=== PATIENT | male | born 1950 | race Caucasian/White ===

== ENCOUNTER 2018-02-05 00:18 | Observation (INO) | payer OTHER ==
[~2018-02-05] VITALS: Ht 180.3 cm; Wt 148.5 kg
[~2018-02-05 00:18] MED LIST: ACET325 PO; FAMO20 PO; FURO40 PO; LISI20 PO; POTCHL20ER PO; XARELTO15 MG PO; XARELTO20 MG PO
[2018-02-05 00:53] LABS: BASOPHILS ABSOLUTE AUTO 0.07 K/mm3 (0.00-0.23); BASOPHILS PERCENT AUTO 1 % (0-2); EOSINOPHILS PERCENT AUTO 4 % (0-6); Hematocrit 48.5 % (37.0-53.0); Hemoglobin 15.9 g/dL (13.5-17.5); IMMATURE GRAN PERCENT AUTO 1 % (0-1); LYMPHOCYTES PERCENT AUTO 20 % (21-46); MONOCYTES ABSOLUTE AUTO 0.96 K/mm3 (0.16-1.47); MONOCYTES PERCENT AUTO 9 % (4-13); Mean Corpuscular HGB 29.7 pg (26.0-34.0); Mean Corpuscular HGB Conc 32.8 g/dL (31.5-36.5); Mean Corpuscular Volume 91 fL (80-100); NEUTROPHILS PERCENT AUTO 66 % (41-73); RDW Coefficient Variation 13.3 % (11.7-14.2); RDW Standard Deviation 44.5 fL (35.1-46.3); Red Blood Cell Count 5.36 M/mm3 (4.30-5.90); White Blood Cell Count 10.93 K/mm3 (4.00-11.30)
[2018-02-05 00:55] LABS: Mean Platelet Volume 9.9 fL (9.1-12.4); Platelet Count 235 K/mm3 (150-400)
[2018-02-05 01:06] LABS: Alanine Aminotransfer (ALT/SGP 24 U/L (12-78); Albumin, Blood 3.3 g/dL (3.4-5.0); Albumin/Globulin Ratio 0.7 (0.8-1.8); Alk Phos 63 U/L (50-136); Anion Gap 3 mmol/L (6-16); Aspartate Aminotrans (AST/SGOT 27 U/L (12-37); Bilirubin, Total 0.5 mg/dL (0.1-1.0); Blood Urea Nitrogen 13 mg/dL (8-24); Bun/Creatinine Ratio 11.8 (12.0-20.0); CO2, Blood 28 mmol/L (21-32); Calcium, Blood 8.2 mg/dL (8.5-10.1); Chloride, Blood 103 mmol/L (98-108); Globulin, Blood 4.6 g/dL (2.2-4.0); Glomerular Filtration Rate >60 (60-); Glucose, Blood 106 mg/dL (70-99); Potassium, Blood 5.1 mmol/L (3.5-5.5); Sodium, Blood 134 mmol/L (136-145); Total Protein, Blood 7.9 g/dL (6.4-8.2); Troponin I <0.015 ng/mL (0.000-0.040)
[2018-02-05 02:02] LABS: Prothrombin Time Results 10.4 Sec (9.7-11.5)
[2018-02-05 02:24] LABS: PCO2 Arterial 44.1 mmHg (35-45); PO2 Arterial 59.9 mmHg (80-100); pH Blood Arterial 7.41 (7.35-7.45)
[2018-02-05] MEDS ORDERED: CHOL10002 PO (04:38)
[2018-02-05] MEDS ORDERED: HYDR1TAB94 PO (09:16)
[2018-02-05] MEDS ORDERED: XARELTO15 MG PO (09:17)
[2018-02-05] MEDS ORDERED: XARELTO20 MG PO (09:18)
== END 2018-02-05 18:07 | disposition home or self-care (01) ==
LOC: ER 00:18 → PCU 00:19
PROVIDERS: Emergency Medicine
DX: I26.99 Other pulmonary embolism without acute cor pulmonale (principal); I82.412 Acute embolism and thrombosis of left femoral vein; I82.432 Acute embolism and thrombosis of left popliteal vein; I82.492 Acute embolism and thrombosis of other specified deep vein of left lower extremity; I82.812 Embolism and thrombosis of superficial veins of left lower extremity; I25.10 Atherosclerotic heart disease of native coronary artery without angina pectoris; I11.0 Hypertensive heart disease with heart failure; I50.30 Unspecified diastolic (congestive) heart failure; F17.210 Nicotine dependence, cigarettes, uncomplicated; E66.01 Morbid (severe) obesity due to excess calories; G47.33 Obstructive sleep apnea (adult) (pediatric); Z90.49 Acquired absence of other specified parts of digestive tract; Z79.899 Other long term (current) drug therapy; Z68.42 Body mass index [BMI] 45.0-49.9, adult
CPT/HCPCS: 36415; 36600; 71260; 80053; 82803; 83880; 84484; 85025; 85610; 85730; 93005; 93010; 93306; 93970; 96365; 96375; 96376; 99285; G0378; J1170; J1644; J1885; J7040; Q9967

== ENCOUNTER → 2019-12-09 | Outpatient (CLI) | payer OTHER ==
[~2019-12-09] MED LIST changes: +CHOL10002 PO; +HYDR1TAB94 PO
== END ==
LOC: LAB SHORT 13:19 → OLS 13:19
DX: N18.2 Chronic kidney disease, stage 2 (mild) (principal)
CPT/HCPCS: 82570; 84156

== ENCOUNTER → 2021-12-24 | Outpatient (CLI) | payer OTHER | END | disposition home or self-care (01) | LOC: LAB SHORT 07:22 | DX: C44.212 Basal cell carcinoma of skin of right ear and external auricular canal (principal) | CPT/HCPCS: 88305 ==